=== PATIENT | female | born 1980 | race African-American/Black ===

== ENCOUNTER → 2021-05-05 11:18 | Outpatient (CLI) | payer OTHER, SELFPAY ==
--- NOTE | ~2021-05-05 | XR_ITS ---
EXAMINATION: XR chest 2V 05/05/2021 11:58 INDICATION: Shortness of breath PROCEDURE: PA and lateral views of the chest COMPARISON: No prior studies for comparison. FINDINGS: The lungs are clear. The cardiomediastinal silhouette is within normal limits. There are no pleural effusions. There is no pneumothorax suspected. IMPRESSION: 1: NO ACUTE CARDIOPULMONARY DISEASE. Reviewed, dictated and finalized at location B.
== END ==
DX: Z01.818 Encounter for other preprocedural examination (principal)
CPT/HCPCS: 71046

== ENCOUNTER 2021-10-30 19:07 | Emergency (ER) | payer OTHER, SELFPAY ==
[2021-10-30 19:21] VITALS: BP 143/76; PULSE 91; RESP 16; TEMP 36.9; O2SAT 100
--- NOTE | 2021-10-30 20:10 | ED.EXTPRO ---
HPI - Extremity Problem General Chief complaint: Extremity Problem,Nontraumatic <Francine Bhardwaj PA-C - Last Filed: 10/31/21 03:00> Stated complaint: right leg pain <Francine Bhardwaj PA-C - Last Filed: 10/31/21 03:00> Time Seen by Provider: 10/30/21 19:51 <AVINASH Veronica Last Filed: 10/31/21 03:00> History of Present Illness HPI Narrative: Patient is a 41-year-old female with a history of anxiety who presents emergency department for evaluation of right lower leg pain. She describes the pain as a dull, deep ache and is mostly present right lateral ankle and occasionally moves up her calf. States her pain is there most of the time but is worse with exertion. Denies relief after Tylenol. States she has had similar pain in the past in her , DVT was suspected and ruled out with an ultrasound. Reports some recent long travel 2 weeks ago, no oral contraceptive use. She does report some nausea, but no vomiting. No hemoptysis, cough, shortness of breath, fevers. <AVINASH Veronica Last Filed: 10/31/21 03:00> Related Data Allergies/Adverse reactions: Allergies Allergy/AdvReac Type Severity Reaction Status Date / Time iohexol Allergy Anaphylactic Verified 10/30/21 19:26 [From contrast - CT, X-RAY] Shock Sulfa (Sulfonamide Allergy Anaphylaxis Verified 10/30/21 19:26 Antibiotics) NSAIDS (Non-Steroidal AdvReac Itching Verified 10/30/21 19:26 Anti-Inflamma <AVINASH Veronica Last Filed: 10/31/21 03:00> Review of Systems Review of Systems: Gen.: Denies fevers or chills Eyes: Denies eye pain or visual change ENT: Denies congestion Respiratory: Denies shortness of breath or cough CV: Denies chest pain or palpitations GI: Reports nausea. Denies abdominal pain , emesis or diarrhea denies burning, urgency, frequency or hematuria Musculoskeletal: Reports right lower leg pain. Denies back pain Neuro: Denies numbness, tingling, weakness or focal weakness Skin: Denies rash Except as documented, all other systems reviewed and negative <Francine Bhardwaj PA-C - Last Filed: 10/31/21 03:00> All systems reviewed & are unremarkable except as noted in HPI and below <Francine Bhardwaj PA-C - Last Filed: 10/31/21 03:00> Exam Narrative: APPEARANCE: Well appearing, no pain in distress, well-nourished. Head normocephalic and atraumatic. EYES: PERRLA/EOMI, conjunctivae clear NOSE: No nasal drainage EARS: External ear normal in appearance THROAT: Oropharynx is clear. Mucous membranes are moist. NECK: Supple. No adenopathy, no masses. RESPIRATORY: Airway patent, respirations nonlabored. Clear to auscultation bilaterally, no rales, rhonchi, wheezing. CARDIOVASCULAR: 2+ DP and PT pulses bilaterally. Regular rate and rhythm without murmurs, rubs, or gallops. ABDOMINAL: Normoactive bowel sounds. Soft, nontender, nondistended. No rebound tenderness or guarding. MUSCULOSKELETAL: Right lower extremity is tender to palpation over right calf. Able to move both lower extremities well. Extremities are warm and well-perfused. Moves all extremities well. No edema. NEURO: Normal speech. No focal neurologic deficits. SKIN: Skin is warm and dry. No rashes. PSYCHIATRIC: Normal affect/mood. <Francine Bhardwaj PA-C - Last Filed: 10/31/21 03:00> Course OVEN WORKER/PA Physician Supervision For this patient encounter, I reviewed the OVEN WORKER or PA documentation, treatment plan, and medical decision making. <Rik Urrutia MD - Last Filed: 10/31/21 04:03> Vital Signs Vital signs: Vital Signs Temperature 98.4 F 10/30/21 19:21 Pulse Rate 91 10/30/21 19:21 Respiratory Rate 16 10/30/21 19:21 Blood Pressure 143/76 H 10/30/21 19:21 Pulse Oximetry 100 10/30/21 19:21 Temperature 98.4 F 10/30/21 19:21 Pulse Rate 91 10/30/21 19:21 Respiratory Rate 16 10/30/21 19:21 Blood Pressure 143/76 H 10/30/21 19:21 Pulse Oximetry
[2021-10-30 21:30] LABS: Influenza A QL RT-PCR Negative (Negative); Influenza B QL RT-PCR Negative (Negative); SARS-CoV-2 RNA PCR Negative
[2021-10-30 21:41] LABS: D Dimer < 0.27 ug/mL (<0.48)
== END 2021-10-30 22:29 | disposition home or self-care (01) ==
PROVIDERS: Physician Assistant; Emergency Provider Emergency Medicine
DX: S86.911A Strain of unspecified muscle(s) and tendon(s) at lower leg level, right leg, initial encounter (principal); Z20.822 Contact with and (suspected) exposure to COVID-19; X58.XXXA Exposure to other specified factors, initial encounter
CPT/HCPCS: 36415; 85380; 87502; 99283; C9803; U0003; U0005

== ENCOUNTER 2025-05-17 10:30 | Emergency (ER) | payer OTHER, SELFPAY ==
--- OUTSIDE RECORDS SUMMARY | 2019-06-03 04:46 | XMS_ITS | Continuity of Care Document ---
Author Organization [facility] Address [address] [place] [address] Phone Care Team Providers Care Physical Therapy Nurse Name Role Phone Darius Fong MD Unavailable Unavailable Allergies, Adverse Reactions, Alerts Substance Reaction Status Criticality NSAIDS (Non-Steroidal Anti-Inflammatory Drug) Active No Information Sulfa (Sulfonamide Antibiotics) Anaphylaxis(not report ed) Active No Information Medications Medication Instructions Dosage Effective Dates (start - stop) Status Comments ESTROGEN-METHYLTES TOSTERONE (unknown strength) take 1 tablet by oral route for 21 consecutive days, followed by 7 days off Not Available - Active Procedures Procedure Date OFFICE/OUTPATIENT VISIT EST OFFICE/OUTPATIENT VISIT EST OFFICE/OUTPATIENT VISIT EST MRI SPI CANAL&CNTS CRV C-MATRL RADEX SPI CRV 2/3 VIEWS OFFICE/OUTPATIENT VISIT EST OFFICE/OUTPATIENT VISIT EST OFFICE/OUTPATIENT VISIT EST OFFICE/OUTPATIENT VISIT EST POSTOP FOLLOW-UP VISIT POSTOP FOLLOW-UP VISIT POSTOP FOLLOW-UP VISIT ARTHROSCOPY BICEPS TENODESIS OFFICE/OUTPATIENT VISIT EST RADEX REEMA ARTHG RS&I RADEX REEMA COMPL MINIMUM 2 VIEWS 019 OFFICE/OUTPATIENT VISIT NEW Advance Directives Directive Yes / No Effective Date File Name No Information Encounters Encounter Description Practice Location Reason(s) For Visit Diagnoses Date Provider Providers Copied on Encounter [facility], [address], [place], [address], tel:[phone] [facility] No Information 9-201 9 Ajit Mccoy. [address], [place], [place], [id number]. tel:[phone] OFFICE/OUTPA TIENT VISIT EST [facility], [address], [place], [address], [place] tel:[phone] [facility] Right sided neck and shoulder-b lade pain (chief complaint) Body mass index (BMI) 24.0-24.9, adultCervical myofascial pain syndrome 8201 9 Sergo Nails. [address], [place], [place], [id number]. tel:[phone] Referring Provider: Bassam Ojeda, [address], [place], [address]. tel:[phone] OFFICE/OUTPA TIENT VISIT EST [facility], [address] [facility] [address], [place], [address], [place] tel:[phone] [facility] Biceps tendinitis of right upper extremity 9 Ajit Mccoy. [address], [place], [place], [id number]. tel:[phone] OFFICE/OUTPA TIENT VISIT EST [facility], [address], [place], [address], [place] tel:[phone] [facility] Cervical radiculitis Sep-2 3 9 Kane Hood. [address], [place], [place], [id number]. tel:[phone] [facility], [address], [place], [address], [place] tel:[phone] [facility] Radiculopathy, cervical region Sep-2 3-201 9 No Information OFFICE/OUTPA TIENT VISIT EST [facility], [address], [place], [address], [place] tel:[phone] [facility] Cervical radiculopathyC ervical spondylosis with radiculopathy Sep- 9 Kane Bowman Erwin. [address], [place], [place], [id number]. tel:[phone] Referring Provider: Bassam Ojeda, [address], [place], [address]. tel:[phone] OFFICE/OUTPA TIENT VISIT EST [facility], [address], [place], [address], [place] tel:[phone] [facility] Right shoulder pain (chief complaint) Adhesive capsulitis of right shoulderPain in right shoulderHistor y of arthroscopy of right shoulder Sep-0 9 Sergo Jesu. [address], [place], [place], [address]. tel:[phone] OFFICE/OUTPA TIENT VISIT EST [facility], [address], [place], [address], [place] tel:[phone] [facility] Adhesive capsulitis of right shoulderNeck painHistory of arthroscopy of right shoulder Mar-0 9 Ajit Mccoy. [address], [place], [place], [address]. tel:[phone] [facility], [address], [place], [address], [place] tel:[phone] [facility] History of arthroscopy of right shoulderPain in right shoulder Feb- 9 Ajit Perezall. [address], [place], [place], [id number]. tel:[phone] OFFICE/OUTPA TIENT VISIT EST [facility], [address], [place], [address], [place] tel:[phone] [facility] History of arthroscopy of right shoulder Jan- 9 Ajitkane Mccoy. [address], [place], [place], [address]. tel:[phone] [facility], [address], [place], [address], [place] tel:[phone] [facility] Pain in right shoulderHistor y of arthroscopy of right shoulder 9 Sharri Donahue. [address], [place], [place], [address]. tel:[phone] [facility], [address], [place], [address], [place] tel:[phone] [facility] History of arthroscopy of right shoulderPain in right shoulder 9 Sharri Donahue. [address], [place], [place], [address]. tel:[phone] [facility], [address] [facility] [address], [place], [address], [place] tel:[phone] [facility] Biceps tendinitis of right upper extremityPain in right shoulderHistor y of arthroscopy of right shoulderPostop erative visit 9 Sharri Donahue. [address], [place], [place], [address]. tel:[phone] [facility], [address], [place], [address], [place] tel:[phone] [facility] Biceps tendinitis of right upper extremity Aug- 9 Ajit cMcoy. [address], [place], [place], [address]. tel:[phone] OFFICE/OUTPA TIENT VISIT EST [facility], [address], [place], [address], [place] tel:[phone] [facility] Pain in right shoulderBiceps tendinitis of right upper extremity Aug- 9 Ajit Mccoy. [address], [place], [place], [address]. tel:[phone] [facility], [address], [place], [address], [place] tel:[phone] [facility] Pain in right shoulder Feb-2 9 No Information Referring Provider: Darius Fong, [address], [place], [address]. tel:[phone] OFFICE/OUTPA TIENT VISIT NEW [facility], [address], [place], [address], tel:[phone] [facility] Right shoulder pain, unspecified chronicity Ajit Mccoy. [address], [place], [place], [address]. tel:[phone] Referring Provider: Bassam Ojeda, [address] , [place], [address]. tel:[phone] Family History Family Member Type Diagnosis Age At Onset Sister Problem (finding) Alive and well Brother Problem (finding) Alive and well Mother Problem (finding) Alive and well Father Problem (finding) Scleroderma (Cause Of D eath) Payers Payer name Insurance type Covered alliance party ID Jarocho miller(s) [employer] OT [id number] Social History Type Description Quantity Date Captured Comments Alcohol Use Details Unknown Caffeine Use Details Unknown Tobacco Use Status No Information Smoking Status No Information Sex Female Chief Complaint And Reason For Visit No Information Reason For Referral Reason For Referral No Information Plan Of Treatment Date Type Action Status Goal Dietary management education , guidance, and counseling completed Referral Ordered: INJECT TRIGGER POINTS =/> 3 RT shoulder ordered Referral Ordered: INJ PARAVERT F JNT C/T 1 LEV RT SNRB ordered Referral Ordered: MRI SPI CANAL&CNTS CRV C-MATRL spine, cervical Appointment date/timeframe: 04/07/2019 ordered Referral Ordered: RADEX SPI CRV 2/3 VIEWS ordered Referral Ordered: referred to Dr Gandara [facility] (related to Adhesive capsulitis of right shoulder) ordered Referral Ordered: referred to Dr Gandara [facility] ordered Referral Ordered: FLUOROSCOPIC GUIDANCE NEEDLE PLACEMENT RT shoulder ordered Referral Ordered: MUSC TEST DONE W/N TEST COMP (EMG/NCS) RT arm ordered Referral Ordered: AMERICA BENAVIDEZ ARTHG RS&I RT shoulder Appointment date/timeframe: 09/09/2018 ordered Referral Ordered: [facility] BENAVIDEZ COMPL MINIMUM 2 VIEWS RT ordered Referral Ordered: MRI ANY JT UXTR C+ MATRL RT shoulder Appointment date/timeframe: 09/09/2018 ordered History Of Present Illness Encounter Date Complaint History Of Prese nt Illness Right sided neck and shoulder-bl jose pain Right shoulder pain Functional Status Date Functional Assessmen t No Information Instructions Date Instruction Additional Infor mation rest and ice Related to Cervi leana myofascial pain syndrome Dietary management e ducation, guidance, and counseling Related to Body mass index (BMI) 24.0-24.9, adult Weight bearing status as directe d. Related to Biceps tendinitis of right upper extremity Discussed treatment options Rela jone to Biceps tendinitis of right upper extremity Rest and Ice. Related to Radic ulopathy, cervical region Discussed treatment options Rela jone to Radiculopathy, cervical region Discussed treatment options Rela jone to Adhesive capsulitis of right shoulder Rest, ice and elevate. Related t o Adhesive capsulitis of right shoulder Rest, ice and elevate. Related t o Pain in right shoulder Inform physician of any changes in symptoms or pain. Related to History of arthroscopy of right shoulder Inform physician of any changes in symptoms or pain. Related to History of arthroscopy of right shoulder Inform physician of any changes in symptoms or pain. Related to History of arthroscopy of right shoulder Discussed treatment options Rela jone to Pain in right shoulder Weight bearing status as directe d. Related to Pain in right shoulder Rest, ice and elevate. Related t o Pain in right shoulder Discussed treatment options Rela jone to Right shoulder pain, unspecified chronicity Weight bearing status as directe d. Related to Right shoulder pain, unspecified chronicity Assessments Type Assessment Date No Information Patient Care Teams Name Effective Dates (start - stop) Status Members No Information
--- OUTSIDE RECORDS SUMMARY | 2021-04-12 02:00 | XMS_ITS | Continuity of Care Document ---
Author Organization [employer] [place] Address [address] 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 Name Role Phone Yanira OTR/L, Darwin STEWART Unavailable Unava ilable Procedures Procedure Date Therapeutic Activities Neuromuscular Re-Ed Therapeutic Exercise Manual Therapy Therapeutic Activities Neuromuscular Re-Ed Manual Therapy Therapeutic Exercise Neuromuscular Re-Ed Therapeutic Activities Manual Therapy Therapeutic Exercise Therapeutic Activities Neuromuscular Re-Ed Therapeutic Exercise Manual Therapy Therapeutic Activities Progress Note Manual Therapy Therapeutic Exercise Neuromuscular Re-Ed Therapeutic Activities Neuromuscular Re-Ed Therapeutic Exercise Manual Therapy Manual Therapy Therapeutic Exercise Neuromuscular Re-Ed Therapeutic Activities Therapeutic Activities Neuromuscular Re-Ed Therapeutic Exercise Manual Therapy Therapeutic Activities Manual Therapy Therapeutic Exercise Neuromuscular Re-Ed Therapeutic Activities Neuromuscular Re-Ed Therapeutic Exercise Manual Therapy Therapeutic Activities Neuromuscular Re-Ed Therapeutic Exercise Manual Therapy Neuromuscular Re-Ed Therapeutic Activities Progress Note Manual Therapy Therapeutic Exercise Therapeutic Exercise Neuromuscular Re-Ed Therapeutic Activities Manual Therapy Manual Therapy Therapeutic Exercise Neuromuscular Re-Ed Therapeutic Activities Neuromuscular Re-Ed Therapeutic Activities Manual Therapy Therapeutic Exercise Therapeutic Activities Neuromuscular Re-Ed Therapeutic Exercise Manual Therapy Therapeutic Exercise Neuromuscular Re-Ed Therapeutic Activities Manual Therapy Therapeutic Activities Progress Note Manual Therapy Therapeutic Exercise Neuromuscular Re-Ed Therapeutic Activities Neuromuscular Re-Ed Therapeutic Exercise Manual Therapy Therapeutic Activities Manual Therapy Therapeutic Exercise Neuromuscular Re-Ed Therapeutic Exercise Neuromuscular Re-Ed Therapeutic Activities Manual Therapy OT Evaluation Moderate Complexity Manual Therapy Therapeutic Exercise Neuromuscular Re-Ed Therapeutic Activities Free Assessment Therapeutic Activities Neuromuscular Re-Ed Therapeutic Exercise Manual Therapy Manual Therapy Therapeutic Exercise Neuromuscular Re-Ed Therapeutic Activities Therapeutic Activities Manual Therapy Therapeutic Exercise Neuromuscular Re-Ed Therapeutic Activities Neuromuscular Re-Ed Therapeutic Exercise Manual Therapy Therapeutic Activities Neuromuscular Re-Ed Therapeutic Exercise Manual Therapy Therapeutic Activities Neuromuscular Re-Ed Therapeutic Exercise Manual Therapy Manual Therapy Therapeutic Exercise Neuromuscular Re-Ed Therapeutic Activities OT Evaluation High Complexity Manual Therapy Therapeutic Exercise Neuromuscular Re-Ed Therapeutic Activities Therapeutic Activities Neuromuscular Re-Ed Therapeutic Exercise Manual Therapy Therapeutic Activities Neuromuscular Re-Ed Therapeutic Exercise Manual Therapy Neuromuscular Re-Ed Therapeutic Activities Manual Therapy Therapeutic Exercise Electrical Stimulation Neuromuscular Re-Ed Therapeutic Activities Manual Therapy Therapeutic Exercise Neuromuscular Re-Ed Therapeutic Activities Electrical Stimulation Manual Therapy Therapeutic Exercise Therapeutic Activities Neuromuscular Re-Ed Therapeutic Exercise Manual Therapy Neuromuscular Re-Ed Therapeutic Activities Manual Therapy Therapeutic Exercise Therapeutic Activities Neuromuscular Re-Ed Therapeutic Exercise Manual Therapy Therapeutic Activities Therapeutic Exercise Neuromuscular Re-Ed Manual Therapy Therapeutic Activities Neuromuscular Re-Ed Manual Therapy Therapeutic Exercise Therapeutic Activities Neuromuscular Re-Ed Therapeutic Exercise Manual Therapy Neuromuscular Re-Ed Therapeutic Activities Manual Therapy Therapeutic Exercise Progress Note Therapeutic Activities Neuromuscular Re-Ed Manual Therapy Therapeutic Exercise Therapeutic Activities Neuromuscular Re-Ed Manual Therapy Therapeutic Exercise Electrical Stimulation Hot or Cold Pack Therapeutic Activities Therapeutic Exercise Neuromuscular Re-Ed Manual Therapy Manual Therapy Therapeutic Exercise Neuromuscular Re-Ed Therapeutic Activities Manual Therapy Therapeutic Exercise Neuromuscular Re-Ed Therapeutic Activities Progress Note Manual Therapy Therapeutic Exercise Neuromuscular Re-Ed Therapeutic Activities Neuromuscular Re-Ed Therapeutic Activities Manual Therapy Therapeutic Exercise Therapeutic Activities Neuromuscular Re-Ed Manual Therapy Therapeutic Exercise Neuromuscular Re-Ed Therapeutic Activities Hot or Cold Pack Manual Therapy Therapeutic Exercise Therapeutic Activities Neuromuscular Re-Ed Hot or Cold Pack Manual Therapy Therapeutic Exercise Progress Note Therapeutic Exercise Neuromuscular Re-Ed Therapeutic Activities Hot or Cold Pack Manual Therapy Neuromuscular Re-Ed Therapeutic Activities Hot or Cold Pack Manual Therapy Therapeutic Exercise Therapeutic Activities Hot or Cold Pack Manual Therapy Therapeutic Exercise Neuromuscular Re-Ed Therapeutic Activities Therapeutic Exercise Neuromuscular Re-Ed Manual Therapy Neuromuscular Re-Ed Therapeutic Activities Hot or Cold Pack Manual Therapy Therapeutic Exercise Therapeutic Exercise Neuromuscular Re-Ed Therapeutic Activities Manual Therapy Therapeutic Activities Neuromuscular Re-Ed Electrical Stimulation Hot or Cold Pack Manual Therapy Therapeutic Exercise Therapeutic Activities Therapeutic Exercise Neuromuscular Re-Ed Hot or Cold Pack Manual Therapy Neuromuscular Re-Ed Therapeutic Activities Hot or Cold Pack Manual Therapy Therapeutic Exercise OT Evaluation High Complexity 0 Neuromuscular Re-Ed Therapeutic Activities Therapeutic Exercise Manual Therapy Hot or Cold Pack Therapeutic Exercise Neuromuscular Re-Ed Hot or Cold Pack Manual Therapy Electrical Stimulation Therapeutic Exercise Neuromuscular Re-Ed Hot or Cold Pack Manual Therapy Electrical Stimulation Therapeutic Exercise Neuromuscular Re-Ed Manual Therapy Hot or Cold Pack Therapeutic Exercise Neuromuscular Re-Ed Manual Therapy Hot or Cold Pack Therapeutic Exercise Neuromuscular Re-Ed Manual Therapy Therapeutic Exercise Neuromuscular Re-Ed Manual Therapy Therapeutic Exercise Neuromuscular Re-Ed Manual Therapy Therapeutic Exercise Manual Therapy Neuromuscular Re-Ed Hot or Cold Pack Therapeutic Exercise Neuromuscular Re-Ed Manual Therapy Electrical Stimulation Hot or Cold Pack Progress Note Therapeutic Exercise Therapeutic Activities Neuromuscular Re-Ed Hot or Cold Pack Manual Therapy Therapeutic Exercise Therapeutic Activities Neuromuscular Re-Ed Manual Therapy Hot or Cold Pack Therapeutic Exercise Therapeutic Activities Neuromuscular Re-Ed Manual Therapy Hot or Cold Pack Electrical Stimulation Therapeutic Exercise Therapeutic Activities Neuromuscular Re-Ed Manual Therapy Hot or Cold Pack Electrical Stimulation Therapeutic Exercise Therapeutic Activities Neuromuscular Re-Ed Manual Therapy Therapeutic Exercise Therapeutic Activities Neuromuscular Re-Ed Manual Therapy Hot or Cold Pack Electrical Stimulation Therapeutic Exercise Therapeutic Activities Neuromuscular Re-Ed Manual Therapy Hot or Cold Pack Therapeutic Exercise Therapeutic Activities Neuromuscular Re-Ed Manual Therapy Hot or Cold Pack Electrical Stimulation Progress Note Therapeutic Exercise Therapeutic Activities Neuromuscular Re-Ed Manual Therapy Hot or Cold Pack Electrical Stimulation Therapeutic Exercise Therapeutic Activities Neuromuscular Re-Ed Manual Therapy Therapeutic Exercise Therapeutic Activities Neuromuscular Re-Ed Manual Therapy Hot or Cold Pack Electrical Stimulation Therapeutic Exercise Therapeutic Activities Neuromuscular Re-Ed Manual Therapy Therapeutic Exercise Therapeutic Activities Neuromuscular Re-Ed Manual Therapy Hot or Cold Pack Electrical Stimulation Therapeutic Exercise Therapeutic Activities Neuromuscular Re-Ed Manual Therapy Hot or Cold Pack Electrical Stimulation Therapeutic Exercise Therapeutic Activities Neuromuscular Re-Ed Manual Therapy Hot or Cold Pack Therapeutic Exercise Neuromuscular Re-Ed Manual Therapy Hot or Cold Pack Therapeutic Exercise Neuromuscular Re-Ed Manual Therapy Hot or Cold Pack Progress Note Therapeutic Exercise Neuromuscular Re-Ed Manual Therapy Hot or Cold Pack Electrical Stimulation Therapeutic Exercise Therapeutic Activities Neuromuscular Re-Ed Manual Therapy Hot or Cold Pack Therapeutic Exercise Neuromuscular Re-Ed Manual Therapy Hot or Cold Pack Therapeutic Exercise Neuromuscular Re-Ed Manual Therapy Hot or Cold Pack Therapeutic Exercise Neuromuscular Re-Ed Manual Therapy Hot or Cold Pack Electrical Stimulation Therapeutic Exercise Therapeutic Activities Neuromuscular Re-Ed Manual Therapy Hot or Cold Pack Therapeutic Exercise Neuromuscular Re-Ed Manual Therapy Hot or Cold Pack PT Evaluation Low Complexity Therapeutic Exercise Neuromuscular Re-Ed Manual Therapy Hot or Cold Pack Electrical Stimulation THERAPEUTIC EXERCISES NEUROMUSCULAR RE-ED MANUAL THERAPY ULTRASOUND THERAPY HOT/COLD PACK THERAPEUTIC EXERCISES NEUROMUSCULAR RE-ED MANUAL THERAPY HOT/COLD PACK ELECTRIC STIMULATION UNA THERAPEUTIC EXERCISES NEUROMUSCULAR RE-ED MANUAL THERAPY HOT/COLD PACK THERAPEUTIC EXERCISES NEUROMUSCULAR RE-ED MANUAL THERAPY ULTRASOUND THERAPY HOT/COLD PACK THERAPEUTIC EXERCISES NEUROMUSCULAR RE-ED MANUAL THERAPY ULTRASOUND THERAPY HOT/COLD PACK THERAPEUTIC EXERCISES NEUROMUSCULAR RE-ED MANUAL THERAPY ULTRASOUND THERAPY HOT/COLD PACK THERAPEUTIC EXERCISES ULTRASOUND THERAPY HOT/COLD PACK PT EVALUATION THERAPEUTIC EXERCISES MANUAL THERAPY Advance Directives Directive Yes / No Effective Date File Name No Information Encounters Encounter Description Practice Location Reason(s) For Visit Diagnoses Date Provider Providers Copied on Encounter [facility], [address] [place], [place] [address], [place], [place], [id number], [place] tel:[phone] [place] No Information Sep-2 8-202 1 Yanira Darwin. . Referring Provider: Milad Grace, [address] [address], [place], [address]. tel:[phone] [address], [place], [place], [address], [place] tel:[phone] [place] No Information Sep-2 2-202 1 Yanira Darwin. . Referring Provider: Milad Grace, [address] [address], [place], [address]. tel:[phone], [place], [place], [id number], tel:[phone] [place] No Information Sep-2 0-202 1 Yanira Darwin. . Referring Provider: Milad Grace, [address] [address], [place], [address]. tel:[phone], [place], [place], [address], [place] tel:[phone] [place] No Information Sep-1 5- 1 Yanira Darwin. . Referring Provider: [facility] [address], [place], [address]. tel:[phone] [place], [place] [address], [place], [address], [place] tel:[phone] [place] No Information Sep-1 3-202 1 Yanira Darwin. . Referring Provider: Vazquez [address], [place], [address]. tel:[phone] [address], [place], [address], [place] tel:[phone] [place] No Information Sep-0 1-202 1 Yanira Darwin. . Referring Provider: Vazquez [address], [place], [address]. tel:[phone] [place] [address] [address], [place], [place], [address], tel:[phone] [place] No Information 1 Yanira Darwin. . Referring Provider: Erwin Caceres, Desean[address] [facility] [address], [place], [address]. tel:[phone] [place] [address], [address], [place], [place], [address], [place] tel:[phone] [place] No Information 1 Yanira Darwin. . Referring Provider: Erwin Caceres, [address], [place], [address]. tel:[phone] [place] [address] [address], [place], [place], [address], tel:[phone] [place] No Information 1 Yanira Darwin. . Referring Provider: Erwin Caceres, [address], [place], [address]. tel:[phone] [place] [address] [place], [place] [address], [place], [place], [address], tel:[phone] [place] No Information 1 Yanira Darwin. . Referring Provider: Vazquez [address], [place], [address]. tel:[phone] [place] [address] [address], [place], [address], [place] tel:[phone] [place] No Information 1 Yanira Darwin. . Referring Provider: Desean Clark[address], [place], [address]. tel:[phone] [place] [address] [address], [place], [place], [address], tel:[phone] [place] No Information 1 Yanira Darwin. . Referring Provider: Erwin Caceres, [address], [place], [address]. tel:[phone] [place] [address], [address], [place], [place], [address], tel:[phone] [place] No Information 1 Yanira Darwin. . Referring Provider: Erwin Caceres, [address], [place], [address]. tel:[phone] [place] [address] [address], [place], [place], [address], tel:[phone] [place] No Information 1 Yanira Darwin. . Referring Provider: Vazquez [address], [place], [address]. tel:[phone] [place] [address], [address], [place], [place], [address], tel:[phone] [place] No Information 1 Yanira Darwin. . Referring Provider: Vazquez [address], [place], [address]. tel:[phone] [place] [address] [address], [place], [place], [address], [place] tel:[phone] [place] No Information 1 Yanira Darwin. . Referring Provider: Vazquez [address], [place], [address]. tel:[phone] [place] [address], [address], [place], [place], [address], tel:[phone] [place] No Information 1 Yanira Darwin. . Referring Provider: Vazquez [address], [place], [address]. tel:[phone] [place] [address] [facility] [address], [place], [place], [address], tel:[phone] [place] No Information Jan-0 7-202 1 Yanira Darwin. . Referring Provider: Erwin Caceres, Desean[address] [facility] [address], [place], [address]. tel:[phone] [place] [address], [facility] [address], [place], [place], [address], [place] tel:[phone] [place] No Information 0 2-202 1 Yanira Darwin. . Referring Provider: Erwin Caceres, Desean[address] [facility] [address], [place], [address]. tel:[phone] [place] [address] [address], [place], [place], [address], tel:[phone] [place] No Information Dec-3 0-202 1 Yanira Darwin. . Referring Provider: Erwin Caceres, Vaz[address] [facility] [address], [place], [address]. tel:[phone] [place] [address], [facility] [address], [place], [place], [address], tel:[phone] [place] No Information 2 4-202 1 Yanira Darwin. . Referring Provider: Vazquez Clark [facility] [address], [place], [address]. tel:[phone] [place] [address] [facility] [address], [place], [address], [place] tel:[phone] [place] No Information Rex-2 3-202 1 Yanira Darwin. . Referring Provider: Erwin Caceres, Vaz[address] [facility] [address], [place], [address]. tel:[phone] [place] [address], [address], [place], [place], [address], [place] tel:[phone] [place] No Information 1 Yanira Darwin. . Referring Provider: Physician Screen. [facility], [place], [place], [address], [place] tel:[phone] [place] No Information Mar-0 9- 1 Yanira Darwin. . [facility], [place], [place], [address], [place] tel:[phone] [place] No Information Mar-0 4- 1 Yanira Darwin. . [facility], [place], [place], [address], [place] tel:[phone] [place] No Information Sep-0 2- 1 Yanira Darwin. . [facility], [place], [address], [place] tel:[phone] [place] No Information 2 - 1 Yanira Darwin. . [facility], [place], [address], [place] tel:[phone] [place] No Information - 1 Yanira Darwin. . [facility], [place], [place], [address], [place] tel:[phone] [place] No Information 1 Yanira Darwin. . [facility], [place], [place], [address], [place] tel:[phone] [place] No Information 1 Yanira Darwin. . [facility], [place], [address], [place] tel:[phone] [place] No Information 1 Yanira Darwin. . [facility], [place], [place], [address], [place] tel:[phone] [place] No Information Nov-2 3-202 0 Yanira Darwin. . [facility], [place], [address], [place] tel:[phone] [place] No Information Nov-1 6-202 0 Yanira Darwin. . [facility], [place], [place], [address], [place] tel:[phone] [place] No Information Nov-1 1-202 0 Yanira Darwin. . [facility], [place], [address], [place] tel:[phone] [place] No Information Nov-0 9-202 0 Yanira Darwin. . [facility], [place], [place], [address], [place] tel:[phone] [place] No Information Nov-0 4-202 0 Yanira Darwin. . [facility], [place], [address], [place] tel:[phone] [place] No Information Nov-0 2-202 0 Yanira Darwin. . [facility], [place], [place], [address], [place] tel:[phone] [place] No Information Apr-2 6-202 0 Yanira Darwin. . [facility], [place], [address], [place] tel:[phone] [place] No Information Apr-1 9-202 0 Yanira Darwin. . [facility], [place], [place], [address], [place] tel:[phone] [place] No Information Apr-1 4-202 0 Yanira Darwin. . [facility], [place], [place], [address], [place] tel:[phone] [place] No Information Apr-1 2-202 0 Yanira Darwin. . [facility], [place], [place], [address], [place] tel:[phone] [place] No Information Oct-0 9-202 0 Yanira Darwin. . [facility], [place], [place], [address], [place] tel:[phone] [place] No Information Oct-0 7-202 0 Yanira Darwin. . [facility], [place], [place], [address], [place] tel:[phone] [place] No Information Oct-0 2-202 0 Yanira Darwin. . [facility], [place], [address], [place] tel:[phone] [place] No Information Sep-3 0-202 0 Yanira Darwin. . [facility], [place], [address], [place] tel:[phone] [place] No Information Sep-2 8-202 0 Yanira Darwin. . [facility], [place], [address], [place] tel:[phone] [place] No Information Sep-2 5-202 0 Yanira Darwin. . [facility], [place], [place], [address], [place] tel:[phone] [place] No Information Sep-2 3-202 0 Yanira Darwin. . [facility], [place], [place], [address], [place] tel:[phone] [place] No Information Sep-2 1-202 0 Yanira Darwin. . [facility], [place], [place], [address], [place] tel:[phone] [place] No Information Sep-1 8-202 0 Yanira Darwin. . [facility], [place], [address], [place] tel:[phone] [place] No Information Sep-1 6-202 0 Yanira Darwin. . [facility], [place], [place], [address], [place] tel:[phone] [place] No Information Sep-1 - 0 Heslin Lawrence. . [facility], [place], [address], [place] tel:[phone] [place] No Information Sep-0 0 Heslin Lawrence. . [facility], [place], [address], [place] tel:[phone] [place] No Information Sep-0 2- 0 Yanira Darwin. . [facility], [place], [address], [place] tel:[phone] [place] No Information Feb-3 0 Yanira Darwin. . [facility], [place], [place], [address], [place] tel:[phone] [place] No Information Feb-2 0 Yanira Darwin. . [facility], [place], [place], [address], [place] tel:[phone] [place] No Information 0 Yanira Darwin. . [facility], [place], [address], [place] tel:[phone] [place] No Information 2 0 Yanira Darwin. . [facility], [place], [address], [place] tel:[phone] [place] No Information 2 0 Yanira Darwin. . [facility], [place], [place], [address], [place] tel:[phone] [place] No Information Feb-1 0 Yanira Darwin. . [facility], [place], [place], [address], [place] tel:[phone] [place] No Information 0 Yanira Darwin. . [facility], [address], [place], [place], [address], [place] tel:[phone] [place] No Information 0 Yanira Darwin. . [facility], [address], [place], [place], [address], [place] tel:[phone] [place] No Information 0 Yanira Darwin. . [facility], [address], [place], [address], [place] tel:[phone] [place] No Information 9 Schranck Tia. [address] [place] [address], [address], [place], [facility], . tel:[phone] Referring Provider: Darius Fong, [address], [place], [address]. tel:[phone] [place] [address] [address], [place], [place], [address], tel:[phone] [place] No Information 9 Schnieves Seymourline. [address] [place] [address], [address], [place], [place], [facility], . tel:[phone] Referring Provider: Darius Fong, [address], [place], [address]. tel:[phone] [place] [address] [address], [place], [address], [place] tel:[phone] [place] No Information 9 Aiyana Seymourline. [address] [place] [address], [address], [place], [place], [facility], . tel:[phone] Referring Provider: Darius Fong, [address], [place], [address]. tel:[phone] [facility] [address], [place], [address], [place] tel:[phone] [place] No Information [address] [facility], [address], [place], [place], [facility], [place]. tel:[phone] Referring Provider: Darius Fong, [address], [place], [address]. tel:[phone] [facility] [address], [place], [place], [address], [place] tel:[phone] [place] No Information 9 Zambrano David. . Referring Provider: Darius Fong, [address], [place], [address]. tel:[phone] [facility], [place], [place], [address], [place] tel:[phone] [place] No Information 9 Zambrano David. . Referring Provider: Darius Fong, [address], [place], [address]. tel:[phone] [facility] [address], [place], [address], [place] tel:[phone] [place] No Information 9 Zambrano David. . Referring Provider: Darius Fong, [address], [place], [address]. tel:[phone] [facility], [place], [place], [address], [place] tel:[phone] [place] No Information 9 Zambrano David. . Referring Provider: Darius Fong, [address], [place], [address]. tel:[phone] [facility] [address], [place], [place], [id number], [place] tel:[phone] [place] No Information [address] [facility], [address], [place], [address], [place]. tel:[phone] Referring Provider: Phi Simms [address], [place], [address]. tel:[phone], [place], [place], [address], [place] tel:[phone] [place] No Information [address] [facility], [address], [place], [address], [place]. tel:[phone] Referring Provider: Phi Simms [address], [place], [address]. tel:[phone] [facility] [address], [place], [place], [address], [place] tel:[phone] [place] Pain in right shoulderAbnorm al postureWeaknes sStiffness of right shoulder, not elsewhere classified 9 Pich Raymundo. [address] [place] [address], [address], [place], [address], [place]. tel:[phone] Referring Provider: Darius Fong, [address], [place], [address]. tel:[phone], [place], [place], [address], [place] tel:[phone] [place] Pain in right shoulderAbnorm al postureWeaknes sStiffness of right shoulder, not elsewhere classified [address] [facility], [address], [place], [address], [place]. tel:[phone] Referring Provider: Darius Fong, [address], [place], [address]. tel:[phone], [place], [place], [address], [place] tel:[phone] [place] Pain in right shoulderAbnorm al postureWeaknes sStiffness of right shoulder, not elsewhere classified 0 [address] [facility], [address], [place], [address], [place]. tel:[phone] Referring Provider: Darius Fong, [address], [place], [address]. tel:[phone], [place], [place], [address], tel:[phone] [place] Pain in right shoulderAbnorm al postureWeaknes sStiffness of right shoulder, not elsewhere classified 0 9 Pich Raymundo. [address] [place] [address], [address], [place], [address], [place]. tel:[phone] Referring Provider: Darius Fong, [address], [place], [address]. tel:[phone], [place], [place], [address], tel:[phone] [place] Pain in right shoulderAbnorm al postureWeaknes sStiffness of right shoulder, not elsewhere classified 9 Pich Raymundo. [address] [place] [address], [address], [place], [address], [place]. tel:[phone] Referring Provider: Darius Fong, [address], [place], [address]. tel:[phone], [place], [place], [address], [place] tel:[phone] [place] Pain in right shoulderAbnorm al postureWeaknes sStiffness of right shoulder, not elsewhere classified 9 Pich Raymundo. [address] [place] [address], [address], [place], [address], [place]. tel:[phone] Referring Provider: Darius Fong, [address], [place], [address]. tel:[phone] [facility] [address], [place], [place], [address], [place] tel:[phone] [place] Pain in right shoulderAbnorm al postureWeaknes sStiffness of right shoulder, not elsewhere classified [address] [facility], [address], [place], [address], [place]. tel:[phone] Referring Provider: Darius Fong, [address], [place], [address]. tel:[phone] [facility] [address], [place], [address], [place] tel:[phone] [place] Pain in right shoulderAbnorm al postureWeaknes sStiffness of right shoulder, not elsewhere classified Aiyana Seymourline. [address] [place] [address], [address], [place], [address], [place]. tel:[phone] Referring Provider: Darius Fong, [address], [place], [address]. tel:[phone] [facility] [address], [place], [place], [address], [place] tel:[phone] [place] Pain in right shoulderAbnorm al postureWeaknes sStiffness of right shoulder, not elsewhere classified 9 Juan Manuel Hernandez. . Referring Provider: Darius Fong, [address], [place], [address]. tel:[phone] [facility] [address], [place], [place], [address], [place] tel:[phone] [place] Pain in right shoulderAbnorm al postureWeaknes sStiffness of right shoulder, not elsewhere classified [address] [facility], [address], [place], [address], [place]. tel:[phone] Referring Provider: Darius Fong, [address], [place], [address]. tel:[phone] [facility] [address], [place], [place], [address], [place] tel:[phone] [place] Pain in right shoulderAbnorm al postureWeaknes sStiffness of right shoulder, not elsewhere classified 3201 9 Juan Manuel Weaver . Referring Provider: Darius Fong, [address], [place], [address]. tel:[phone] [facility] [address], [place], [place], [address], [place] tel:[phone] [place] Pain in right shoulderAbnorm al postureWeaknes sStiffness of right shoulder, not elsewhere classified 8 9 Schranck Tia. [address] [place] [address], [address], [place], [address], . tel:[phone] Referring Provider: Darius Fong, [address], [place], [address]. tel:[phone] [facility] [address], [place], [place], [address], [place] tel:[phone] [place] Pain in right shoulderAbnorm al postureWeaknes sStiffness of right shoulder, not elsewhere classified [address] [facility], [address], [place], [address], [place]. tel:[phone] Referring Provider: Darius Fong, [address], [place], [address]. tel:[phone] [facility] [address], [place], [place], [address], [place] tel:[phone] [place] Pain in right shoulderAbnorm al postureWeaknes sStiffness of right shoulder, not elsewhere classified [address] [facility], [address], [place], [address], [place]. tel:[phone] Referring Provider: Darius Fong, [address], [place], [address]. tel:[phone] [facility] [address], [place], [address], [place] tel:[phone] [place] Pain in right shoulderAbnorm al postureWeaknes sStiffness of right shoulder, not elsewhere classified Schranck Tia. [address] [facility], [address], [place], [address], [place]. tel:[phone] Referring Provider: Darius Fong, [address], [place], [address]. tel:[phone] [facility] [address], [place], [address], [place] tel:[phone] [place] Pain in right shoulderAbnorm al postureWeaknes sStiffness of right shoulder, not elsewhere classified Schranck Tia. [address] [place] [address], [address], [place], [address], [place]. tel:[phone] Referring Provider: Darius Fong, [address], [place], [address]. tel:[phone] [facility] [address], [place], [place], [address], [place] tel:[phone] [place] Pain in right shoulderAbnorm al postureWeaknes sStiffness of right shoulder, not elsewhere classified Schranck Tia. [address] [facility], [address], [place], [address], [place]. tel:[phone] Referring Provider: Darius Fong, [address], [place], [address]. tel:[phone] [facility] [address], [place], [place], [address], [place] tel:[phone] [place] Pain in right shoulderAbnorm al postureWeaknes sStiffness of right shoulder, not elsewhere classified May-0 [address] [facility], [address], [place], [address], [place]. tel:[phone] Referring Provider: Darius Fong, [address], [place], [address]. tel:[phone], [place], [place], [address], [place] tel:[phone] [place] Pain in right shoulderAbnorm al postureWeaknes sStiffness of right shoulder, not elsewhere classified 0 [address] [facility], [address], [place], [address], [place]. tel:[phone] Referring Provider: Darius Fong, [address], [place], [address]. tel:[phone] [place] [address] [address], [place], [address], [place] tel:[phone] [place] Pain in right shoulderAbnorm al postureWeaknes sStiffness of right shoulder, not elsewhere classified Apr-2 9 Schranck Tia. [address] [place] [address], [address], [place], [address], [place]. tel:[phone] Referring Provider: Darius Fong, [address], [place], [address]. tel:[phone], [place], [address], [place] tel:[phone] [place] Pain in right shoulderAbnorm al postureWeaknes sStiffness of right shoulder, not elsewhere classified Apr-[address] [facility], [address], [place], [address], [place]. tel:[phone] Referring Provider: Darius Fong, [address], [place], [address]. tel:[phone] [facility], [address] [place] [address] [address], [place], [place], [address], [place] tel:[phone] [place] Pain in right shoulderAbnorm al postureWeaknes sStiffness of right shoulder, not elsewhere classified Apr-2 [address] [facility], [address], [place], [address], [place]. tel:[phone] Referring Provider: Darius Fong, [address], [place], [address]. tel:[phone] [facility], [facility] [address], [place], [place], [address], [place] tel:[phone] [place] Pain in right shoulderAbnorm al postureWeaknes sStiffness of right shoulder, not elsewhere classified Oct- 9 Aiyana Weber. [address] [place] [address], [address], [place], [address], [place]. tel:[phone] Referring Provider: Darius Fong, [address], [place], [address]. tel:[phone] [facility], [address], [place], [place], [address], [place] tel:[phone] [place] Pain in right shoulderAbnorm al postureWeaknes sStiffness of right shoulder, not elsewhere classified Oct- 9 Liam Santana. [address] [place] [address], [address], [place], [address], [place]. tel:[phone] Referring Provider: Darius Fong, [address], [place], [address]. tel:[phone] [facility], [address], [place], [place], [address], [place] tel:[phone] [place] No Information Apr- [address] [facility], [address], [place], [address], [place]. tel:[phone] Referring Provider: Roberto Albrecht, [address], [place], [address]. tel:[phone], [place], [address], [place] tel:[phone] [place] No Information 5201 6 Liam Max. [address] [place] [address], [address], [place], [address], [place]. tel:[phone] Referring Provider: [address], [place], [address]. tel:[phone], [place], [address], [place] tel:[phone] [place] No Information 0-201 6 Liam Max. [address] [place] [address], [address], [place], [address], [place]. tel:[phone] Referring Provider: [address], [place], [address]. tel:[phone], [place], [place], [address], [place] tel:[phone] [place] No Information 8 6 Liam Max. [address] [place] [address], [address], [place], [address], [place]. tel:[phone] Referring Provider: [address], [place], [address]. tel:[phone], [place], [address], [place] tel:[phone] [place] No Information 3201 6 Liam Max. [address] [place] [address], [address], [place], [address], [place]. tel:[phone] Referring Provider: [address], [place], [address]. tel:[phone], [place], [place], [address], [place] tel:[phone] [place] No Information [address] [facility], [address], [place], [address], . tel:[phone] Referring Provider: [address], [place], [address]. tel:[phone], [id number], tel:[phone] [place] Pain in right shoulderAbnorm al postureMuscle weakness (generalized)O ther shoulder lesions, right shoulder Apr- 6 Liam Santana. [address] [place] [address], [address], [place], [address], . tel:[phone] Referring Provider: Sharon [address], [place], [address]. tel:[phone], [place], [place], [address], tel:[phone] [place] No Information 6 Liam Santana. [address] [place] [address], [address], [place], [address], . tel:[phone] Referring Provider: [address], [place], [address]. tel:[phone] Family History Family Member Type Diagnosis Age At Onset No Information Payers Payer name Insurance type Covered libertarian ID Jarocho miller(s) Veronique [id number] Social History Type Description Quantity Date Captured Comments Sex Female Smoking Status No Information Chief Complaint And Reason For Visit No Information Reason For Referral Reason For Referral No Information Plan Of Treatment Date Type Action Status Referral Ordered: Referrals: Specialist. Evaluate and Treat (related to F43.21) ordered Referral Ordered: Clinical Psychology (related to Depression) ordered Referral Ordered: Referrals: Specialist. Evaluate and Treat (related to Adjustment disorder with depressed mood) ordered History Of Present Illness Encounter Date Complaint History Of Prese nt Illness No Information Functional Status Date Functional Assessmen t No Information Instructions Date Instruction Additional Infor john Giving encouragement to exercise Related to Overweight Giving encouragement to exercise Related to Overweight Assessments Type Assessment Date No Information Patient Care Teams Name Effective Dates (start - stop) Status Members No Information
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
--- OUTSIDE RECORDS SUMMARY | 2025-05-17 10:33 | XMS_ITS | Encounter Summary ---
Author Organization [facility] Address [address] [place] [address] Phone Care Team Providers Care Supervisor Rod Placing Name Role Phone Yeni Lawson MD Primary Care Provider [phone] Max Ramirez MD Primary Care Provider + Reason for Visit * Reason Comments Medication Refill Encounter Details Date Type Department Care Team (Late st Contact Info) Description 05/01/2023 Refill [facility] - Primary Care - [place] [address] [place] [address] Celina Reich APRN, SALES PROMOTER [address] [place] [address] Medication Refill Social History Tobacco Use Types Packs/Day Years Used Date Smoking Tobacco: Never Passive Smoke Exposure: Never Smokeless Tobacco: Never Alcohol Use Standard Drinks/Week Comments Yes 0 (1 standard drink = 0.6 oz pur e alcohol) Education Answer Date Recorded What is the highest level of school you have completed or the highest degree you have received? Associate degree: occupational, technical, or vocational program 03/15/2023 Comments Unknown Sex and Gender Information Value Date Recorded Sex Assigned at Not on file Legal Sex Female 12:44 PM CDT Gender Identity Not on file Sexual Orientation Not on file documented as of this encounter Miscellaneous Notes * Telephone Encounter - Jen Mckeon, RN - 05/01/2023 10:09 AM CDT Duplicate request. documented in this encounter Plan of Treatment Not on file documented as of this encounter Visit Diagnoses Diagnosis Obesity (BMI 30-39.9) Obesity, unspecified documented in this encounter Care Teams Supervisor Rod Placing Relationship Specialty Start Date End Date Yeni Lawson MD [address] [place] [address] PCP - General Family Medicine 03/21/23 08/26/24 Max Ramirez MD [address] [place] [address] PCP - General Endocrinology 08/27/24 documented as of this encounter
--- OUTSIDE RECORDS SUMMARY | 2025-05-17 10:33 | XMS_ITS | Clinical Summary ---
Author Organization [facility] Address [address] [place] [phone] Phone Care Team Providers Care Industrial Staff Nurse Name Role Phone Max Ramirez MD Primary Care Provider + Allergies Active Allergy Reactions Criticality Noted Date Comments Iodinated Contrast Media Anaphylaxis High 08/05/2019 Nsaids Anxiety,Itching 02/16/2006 Sulfa Antibiotics Anaphylaxis,Hives,It nicholas,Sh ortness of Breath 01/14/2001 Medications cyclobenzaprine (FLEXERIL) 10 MG Tablet Take 10 mg by mouth. 2 Active Phentermine HCl 37.5 MG TabletIndicatio ns:Obesity (BMI 30-39.9) TAKE 1 TABLET BY MOUTH EVERY MORNING BEFORE BREAKFAST 30 Tablet 3 Active hydrOXYzine (ATARAX) 50 MG Tablet Take 1 Tablet by mouth 3 times daily as needed. Active Active Problems No known active problems Immunizations Immunization Administration Dates Next Due TDAP Vaccine 02/20/2019 Social History Tobacco Use Types Packs/Day Years Used Date Smoking Tobacco: Never Passive Smoke Exposure: Never Smokeless Tobacco: Never Tobacco Cessation:Counseling Given: No Alcohol Use Standard Drinks/Week Comments Yes 0 [...] on file Sexual Orientation Not on file Last Filed Vital Signs Vital Sign Reading Time Taken Comments Blood Pressure 128/90 05/08/2023 3:26 PM CDT Pulse 95 05/08/2023 3:26 PM CDT Temperature 36.1 C (97 F) 05/08/2023 3:26 PM CDT Respiratory Rate 12 05/08/2023 3:26 PM CDT Oxygen Saturation 100% 05/08/2023 3:26 PM CDT Inhaled Oxygen Concentration - - Weight 108 kg (238 lb) 05/08/2023 3:26 PM CDT Height 177.8 cm (5' 10) 05/08/2023 3:26 PM CDT Body Mass Index 34.15 05/08/2023 3:26 PM CDT Plan of Treatment Health Maintenance Due Date Last Done Comments Hepatitis C Virus (HCV) Screening 1980 Hepatitis B Immunization (1 of 3 - 19+ 3-dose series) 10/29/1999 Human Papillomavirus (HPV) Immunization (1 - 3-dose SCDM series) 10/29/2007 Mammogram 06/09/2020 06/09/2019, 05/20/2019 Influenza Immunization (#1) 2025 SARS-COV-2 Immunization ( - season) 2025 Td Immunization Every 10 Yea rs (Adults With 1 Tdap) 02/20/2029 02/20/2019 Respiratory Syncytial Virus (RSV) Immunization (Adult) (1 - 1-dose 75+ series) 10/29/2055 DTaP/Tdap/Td Immunization Discontinued 02/20/2019 Discussion re Starting/Frequency of Mammograms Completed 05/20/2019 Meningococcal Immunization (ACWY) Aged Out No longer eligible based on patient's age to complete this topic Pneumococcal Immunization Combined Aged Out No longer eligible based on patient's age to complete this topic Rotavirus Immunization Aged Out No lo nger eligible based on patient's age to complete this topic Insurance Care Teams Industrial Staff Nurse Relationship Specialty Start Date End Date Max Ramirez MD [address] [facility], [place] [address] PCP - General Endocrinology 08/27/24
--- OUTSIDE RECORDS SUMMARY | 2025-05-17 10:33 | XMS_ITS | Clinical Summary ---
Author Organization [facility] Address [address] [place] [address] Care Team Providers Care Forensic Accountant Name Role Phone Max Ramirez MD Primary Care Provider + Allergies Active Allergy Reactions Criticality Noted Date Comments Iodinated Contrast Media Anaphylaxis High 08/05/2019 Nsaids (Non-Steroidal Anti-Inflammatory Drug) Agitation,Anxiety,Itching,M ental status changes Medium 05/20/2019 Sulfa (Sulfonamide Antibiotics) Anaphylaxis,Hives,Shortness of breath,Stomach upset High 03/11/2012 Medications valACYclovir (VALTREX) 500 mg tabletIndication s:Chronic Suppression Take 500 mg by mouth daily 2 Active cyclobenzaprine (FLEXERIL) 10 mg tabletIndication s:Muscle Spasm Take 1 tablet (10 mg total) by mouth 3 (three) times a day as needed for muscle spasms 12 tablet 2 Active Additional Information Patient not taking.Reported on 07/17/2023 thiamine (VITAMIN B1) 100 mg tabletIndication s:Thiamine Deficiency Take 1 tablet (100 mg total) by mouth daily for 3 doses 3 tablet 3 Active ARIPiprazole (ABILIFY) 5 mg tablet Take 1 tablet (5 mg total) by mouth daily 30 tablet [address] (CYMBALTA) 60 mg capsuleIndicatio ns:Anxiety with Depression Take 2 capsules (120 mg total) by mouth daily 60 capsule 2 3 Active hydrOXYzine (ATARAX) 25 mg tabletIndication s:anxiety Take 2 tablets (50 mg total) by mouth 3 (three) times a day as needed for anxiety 30 tablet 2 3 Active traMADoL (ULTRAM) 50 mg tablet Take 1 tablet (50 mg total) by mouth every 6 (six) hours as needed for pain 28 tablet 1 4 Active semaglutide (WEGOVY) 0.25 mg/0.5 mL auto-injector Inject 0.5 mL (0.25 mg total) under the skin every 7 days 3 mL 1 4 Active valsartan (DIOVAN) 160 mg tablet Take 1 tablet (160 mg total) by mouth daily 15 tablet 5 07/23/19 26 Active Active Problems Problem Noted Date Diagnosed Date Class 2 severe obesity with body mass index (BMI) of 35 to 39.9 with serious comorbidity 08/13/2023 Primary hypothyroidism 07/17/2023 Overview (07/17/2023): Check labs Anxiety disorder 09/26/2022 Alcohol use disorder, severe, dependence 023 Routine general medical exam ination at a health care facility 09/21/2022 Assessment & Plan (09/21/2022 6:48 AM SHREDDER PICKER): - mild dehydration when assessed,might contribute to reported FUENTES, reeived by tylenol , encouraged increase po fluids while inpatient - BMI 32, chronic pain encourage follow up with PCP at discharge Depression, unspecified 09/20/2022 Assessment & Plan (09/21/2022 6:41 AM SHREDDER PICKER): - plan and treatment per Psychiatry . ETOH use disorder, PEYTON protocol per Psychiatry TSH 2.82 Neurogenic thoracic outlet syndrome 02/03/2020 Cervical spondylosis with radiculopathy 01/26/20 20 Elevated antinuclear antibody (RAN) level 2019 Current moderate episode of major depressive disorder without prior episode 01/08/2020 Raynaud's phenomenon (by history or observed) Subacute pansinusitis 06/20/2017 Seasonal allergic rhinitis due to pollen 017 History of herpes genitalis 06/16/2015 Insomnia 12/06/2014 Immunizations Immunization Administration Dates Next Due Tdap 02/20/2019 Medical History Medical History Date Comments Hypertension Obesity Anxiety Depression Family History Medical History Relation Name Comments Hypertension Father Cancer Maternal Grandfather throat Depression Maternal Grandmother Hyperlipidemia Paternal Grandfather Prostate cancer Paternal Grandfather Diabetes Paternal Grandmother Hyperlipidemia Paternal Grandmother Hypertension Paternal Grandmother Stroke Paternal Grandmother Suicide Completion Paternal cousin Relation Name Status Comments Father Maternal Grandfather Maternal Grandmother Alive Paternal Grandfather Paternal Grandmother Paternal cousin Social History Tobacco Use Types Packs/Day Years Used Date Smoking Tobacco: Never Smokeless Tobacco: Never Tobacco Cessation:Counseling Given: Not Answered Alcohol Use Standard Drinks/Week Comments Yes 18 (1 standard drink = 0.6 oz pu re alcohol) Personal Safety Answer Date Recorded Getting School Help Needed Not on file 09/29 Comments Unknown Sex and Gender Information Value Date Recorded Sex Assigned at Not on file Legal Sex Female 8:07 AM SHREDDER PICKER Gender Identity Female 12/31/2020 9:11 AM CDT Sexual Orientation Not on file Last Filed Vital Signs Vital Sign Reading Time Taken Comments Blood Pressure 172/100 07/17/2023 10:08 AM SHREDDER PICKER Pulse 74 07/17/2023 10:08 AM SHREDDER PICKER Temperature 36.6 C (97.9 F) 01/23/2023 9:26 AM CDT Respiratory Rate 18 09/22/2022 6:00 AM SHREDDER PICKER Oxygen Saturation 97% 01/23/2023 9:26 AM CDT Inhaled Oxygen Concentration - - Weight 115.7 kg (255 lb) 07/17/2023 10:08 AM SHREDDER PICKER Height 177.8 cm (5' 10) 07/17/2023 10:08 AM SHREDDER PICKER Body Mass Index 36.59 07/17/2023 10:08 AM SHREDDER PICKER Plan of Treatment Health Maintenance Due Date Last Done Comments Cervical Cancer Screening 1980 Depression Screening 1980 Hepatitis C Screening 1980 Varicella Vaccines (1 of 2 - 13+ 2-dose series) 1993 Hepatitis B Screening 1998 Regular Well Visit/Exam 18-64 1998 HPV Vaccines (1 - 3-dose SCD M series) 10/29/2007 Influenza Vaccine (#1) 2025 07/24/2023 Breast Cancer Screening-Mammogram 11/12/2025 11/12/2024, 11/12/2024 DTaP/Tdap/Td Vaccine (2 - Td or Tdap) 02/20/2029 02/20/2019 Pneumococcal vaccine <65 Aged Out No longer eligible based on patient's age to complete this topic Insurance [employer] OPEN ACCESS CIGNA CIGNA ALLEGIANCE CIGNA IBEW CIG[employer] ALLEGIANCE Advance Directives For more information, please contact: [phone] * Full Code (Latest Code Status on File) Date Activated Date Inactivated Comments 09/20/2022 10:04 AM 09/22/2022 6:49 PM Care Teams Forensic Accountant Relationship Specialty Start Date End Date Max Ramirez MD PCP - General Endocrinology Diabetes & Metabolism 07/17/23
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
--- OUTSIDE RECORDS SUMMARY | 2025-05-17 10:33 | XMS_ITS | Encounter Summary ---
Author Organization [facility] Address [address] [facility] Attn: Epic Prelude ADT [place] [address] Care Team Providers Care E Learning Manager Name Role Phone Bassam Razo MD Primary Care Provider Unavail able Encounter Details Date Type Department Care Team (Late st Contact Info) Description 09/29/1992 Outpatient Historical Sukhjidner Loving MD NO ADDRESS ON FILE Social History Tobacco Use Types Packs/Day Years Used Date Smoking Tobacco: Never Assessed Comments Unknown Sex and Gender Information Value Date Recorded Sex Assigned at Not on file Legal Sex Female 3:52 AM GEOTHERMAL FIELD TECHNICIAN Gender Identity Not on file Sexual Orientation Not on file documented as of this encounter Plan of Treatment Not on file documented as of this encounter Visit Diagnoses Not on filedocumented in this encounter Additional Health Concerns Infection Onset Date Last Indicated Resolved Time R/O COVID-19 05/04/2020 05/04/2020 05/05/2020 3:45 PM CDT documented as of this encounter Care Teams E Learning Manager Relationship Specialty Start Date End Date Bassam Razo MD PCP - General Family Practice 11/15/16 documented as of this encounter
[2025-05-17 11:43] VITALS: BP 117/67; PULSE 86; RESP 20; TEMP 36.8; O2SAT 100
--- NOTE | 2025-05-17 12:00 | ED_ITS ---
HPI - Ear Problem General Chief complaint: Ear Stated complaint: right ear yellow drainage Time Seen by Provider: 05/17/25 11:49 History of Present Illness HPI Narrative: Patient is a 44-year-old female who presents the ER with pain to her right ear. Itching burning in nature, ongoing for 3 days, associated with discharge. No fresh water or swimming pool exposure. Mild radiation into the jaw. Has history of breast cancer and had recent mastectomy. Related Data Allergies Allergy/AdvReac Type Severity Reaction Status Date / Time iohexol (From contrast - CT, Allergy Anaphylactic Verified 05/17/25 11:46 X-RAY) Shock Sulfa (Sulfonamide Allergy Anaphylaxis Verified 05/17/25 11:46 Antibiotics) NSAIDS (Non-Steroidal AdvReac Itching Verified 05/17/25 11:46 Anti-Inflamma Review of Systems Review of Systems: All systems reviewed & are unremarkable except as noted in HPI and below Constitutional: Constitutional: Reports no additional constitutional complaints ENT: Reports system reviewed and no additional complaints, except as docume nted Cardiovascular: Cardiovascular: Reports no additional cardiovascular complaints Integumentary/Breasts: Skin/Breast: Reports system reviewed and no additional complaints, except as docu PMFSH Past Medical History Medical History (Updated 05/17/25 @ 12:03 by Mark Lloyd MD) Breast cancer Surgical History Surgical History (Updated 05/17/25 @ 12:01 by Mark Lloyd MD) H/O bilateral mastectomy Exam Narrative: GENERAL: Well-appearing, well-nourished, and in no acute distress. HEAD: Normocephalic, atraumatic. EYES: PERRL and EOMI. ENT: Mucous membranes moist. Small amount of cerumen within the ear canal bilaterally. TMs normal bilaterally. Pain with manipulation of the right ear, ear canal does not seem particularly edematous, no vesicles. NECK: Supple. EXTREMITIES: Normal range of motion. No edema. SKIN: Warm, dry, no rash. NEURO: Alert and oriented x3. PSYCH: Normal mood and affect. Course Course Emergency Course: No evidence of shingles. Will give here antibiotics for otitis externa. Follow-up with PCP. Declines pain medication. Vital Signs Vital signs: Vital Signs Temperature 98.3 F 05/17/25 11:43 Pulse Rate 86 05/17/25 11:43 Respiratory Rate 20 05/17/25 11:43 Blood Pressure 117/67 05/17/25 11:43 Pulse Oximetry 100 05/17/25 11:43 Oxygen Delivery Room Air 05/17/25 11:43 Temperature 98.3 F 05/17/25 11:43 Pulse Rate 86 05/17/25 11:43 Respiratory Rate 20 05/17/25 11:43 Blood Pressure 117/67 05/17/25 11:43 Pulse Oximetry 100 05/17/25 11:43 Oxygen Delivery Room Air 05/17/25 11:43 Medical Decision Making Differential Diagnosis Differential Diagnosis: Otitis media, otitis externa, shingles, ear foreign body, ear wax impaction. Vital Signs Vital Signs: Vital Signs Temperature 98.3 F 05/17/25 11:43 Pulse Rate 86 05/17/25 11:43 Respiratory Rate 20 05/17/25 11:43 Blood Pressure 117/67 05/17/25 11:43 Pulse Oximetry 100 05/17/25 11:43 Oxygen Delivery Room Air 05/17/25 11:43 Temperature 98.3 F 05/17/25 11:43 Pulse Rate 86 05/17/25 11:43 Respiratory Rate 20 05/17/25 11:43 Blood Pressure 117/67 05/17/25 11:43 Pulse Oximetry 100 05/17/25 11:43 Oxygen Delivery Room Air 05/17/25 11:43 Discharge Plan Discharge Clinical Impression: Otitis externa Patient Disposition: Home Condition: Stable Instructions: Antibiotic Form, Swimmer's Ear (ED) Additional Instructions: Return ER if you have increased pain, have fever 100.4? F, you have additional concerns. Patient Language: South African Prescriptions: New ofloxacin 0.3 % drops 10 drp RIGHT EAR DAILY 10 Days Qty: 5 0RF Follow-up/Referrals: PHYSICIAN,TURF GROWER [Non-Staff, Internal Medicine] - 1 Week
== END 2025-05-17 12:20 | disposition home or self-care (01) ==
PROVIDERS: Emergency Provider Emergency Medicine; PCP Physician Assistant
DX: H60.91 Unspecified otitis externa, right ear (principal); Z85.3 Personal history of malignant neoplasm of breast; Z90.13 Acquired absence of bilateral breasts and nipples
CPT/HCPCS: 99283